=== PATIENT | female | born 1975 | race American Indian/Alaskan Native ===

== ENCOUNTER 2017-01-28 14:08 | Emergency (ER) | payer MEDICAID ==
[~2017-01-28 14:08] MED LIST: traMADol 50 MG Tab PO ONE
[2017-01-28 14:11] VITALS: BP 148/96
[2017-01-28] MEDS ORDERED: Ketorolac 60 MG/2 ML SDV IM ONE (14:15)
--- NOTE | 2017-01-28 14:50 | EDM.PDOC ---
ED HPI GENERAL MEDICAL PROBLEM - General Chief Complaint: Back Pain or Injury Stated Complaint: lower back pain/spasms Time Seen by Provider: 01/28/17 14:29 Source of Information: Reports: Patient History Limitations: Reports: No Limitations - History of Present Illness INITIAL COMMENTS - FREE TEXT/NARRATIVE: Patient with 2 year history of LBP with multiple images and interventional management diagnosis bulging disc unsure what level in the lumbar spine. This am was doing morning stretches and felt a catch in the low back with limited ROM she indicates she was out of pain medication eg. Hartman and presents to ER for evaluation and medications. She indicates has Xanaflex at home and is taking home medications as indicated. She denies cauda equina S/S. 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), Home Treatments Lower Back Pain Score (Numeric/FACES): 9 - Related Data Allergies Allergy/AdvReac Type Severity Reaction Status Date / Time methocarbamol [From Robaxin] Allergy Edema Verified 01/28/17 14:11 Home Meds: Home Meds Cyclobenzaprine [Flexeril] 10 mg PO BEDTIME PRN 10/25/15 [History] Escitalopram [Lexapro] 20 mg PO DAILY 10/25/15 [History] Naproxen 500 mg PO BID 10/25/15 [History] Pregabalin [Lyrica] 150 mg PO TID 10/25/15 [History] SUMAtriptan [Imitrex] 50 mg PO Q2H PRN 10/25/15 [History] Zolpidem Tartrate [Ambien Cr] 6.25 mg PO BEDTIME PRN 10/25/15 [History] clonazePAM [Clonazepam] 0.25 mg PO BID PRN 10/25/15 [History] tiZANidine [Zanaflex] 4 mg PO BID PRN 10/25/15 [History] ALPRAZolam [Alprazolam] 0.5 mg PO BID PRN 04/12/16 [History] Ferrous Sulfate 650 mg PO DAILY 04/12/16 [History] Hydrocodone/Acetaminophen [Hydrocodone-Acetaminophen 5-325] 1 - 2 tab PO Q4H PRN 04/12/16 [History] buPROPion HCl [Wellbutrin Xl] 300 mg PO DAILY 04/14/16 [History] Lidocaine 5% [Lidoderm 5%] 1 patch TOP Q24H PRN 01/28/17 [History] traZODone 50 mg PO BEDTIME 01/28/17 [History] Past Medical History Cardiovascular History: Reports: Hypertension Genitourinary History: Reports: UTI, Recurrent 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 Musculoskeletal History: Reports: Back Pain, Chronic, Other (See Below) ([facility] [place]) Neurological History: Reports: Migraines Psychiatric History: Reports: Depression Endocrine/Metabolic History: Reports: None, Obesity/BMI 30+ Hematologic History: Reports: None - Past Surgical History GI Surgical History: Reports: Appendectomy Social & Family History - Tobacco Use Smoking Status *Q: Never Smoker Years of Tobacco use: 15 Packs/Tins Daily: 0.1 Used Tobacco, but Quit: Yes Month Tobacco Last Used: 5 MONTHS AGO Second Hand Smoke Exposure: Yes - Recreational Drug Use Recreational Drug Use: No - Living Situation & Occupation Occupation: Unemployed ED ROS GENERAL - Review of Systems Review Of Systems: See Below Constitutional: Reports: Weakness HEENT: Reports: No Symptoms Respiratory: Reports: No Symptoms Cardiovascular: Reports: No Symptoms Endocrine: Reports: No Symptoms GI/Abdominal: Reports: No Symptoms : Reports: No Symptoms Musculoskeletal: Reports: Back Pain, Muscle Pain Skin: Reports: No Symptoms Neurological: Reports: No Symptoms, Difficulty Walking, Gait Disturbance. Denies: Paresthesia, Tingling, Weakness Psychiatric: Reports: Depression Hematologic/Lymphatic: Reports: No Symptoms Immunologic: Reports: No Symptoms ED EXAM,LOWER BACK PAIN/INJURY - Physical Exam Exam: See Below Exam Limited By: Other (Exacerbation with movement pain) General Appearance: Alert, WD/WN, Mild Distress, Obese Ears: Normal External Exam Nose: Normal Inspection Throat/Mouth: Normal Inspection, Normal Teeth Head: Atraumatic, Normocephalic Neck: Normal Inspection, Full Range of Motion Respiratory/Chest: No Respiratory Distress, Lungs Clear Cardiovascular: Normal Peripheral Pulses, Regular Rate, Rhythm, No Edema, No JVD GI/Abdominal: Soft (Female) Exam: Deferred Rectal (Female) Exam: Deferred Back Exam: Normal Inspection, Decreased Range of Motion, Muscle Spasm, Paraspinal Tenderness, Vertebral Tenderness, Other (+ Bilateral SLE- Neurovascualr intact + [place]) Neurological: Alert, CN II-XII Intact, Normal Reflexes DTR - Lower Extremities: 3+: Knee (R), Knee (L), Ankle (R), Ankle (L) Psychiatric: Anxious, Tearful Skin Exam: Warm, Dry, Intact, Normal Color, No Rash Lymphatic: No Adenopathy Course - Vital Signs Last Recorded V/S: Last Vital Signs Temp 36.3 C 01/28/17 14:09 Pulse 74 01/28/17 14:09 Resp 20 01/28/17 14:09 BP 148/96 H 01/28/17 14:09 Pulse Ox 99 01/28/17 14:09 - Orders/Labs/Meds Meds: Medications Discontinued Medications Generic Name Dose Route Start Last Admin Trade Name Freq PRN Reason Stop Dose Admin Ketorolac Tromethamine 60 mg 01/28/17 14:15 01/28/17 14:21 Toradol IM 01/28/17 14:16 60 mg ONETIME ONE Administration Orphenadrine Citrate 60 mg 01/28/17 14:16 01/28/17 14:22 Norflex IM 01/28/17 14:17 60 mg ONETIME ONE Administration Departure - Departure Time of Disposition: 14:56 Disposition: Home, Self-Care 01 Condition: good Clinical Impression: Back pain - Discharge Information Instructions: Muscle Strain, [id number], Back Pain, Adult, [id number], Chronic Back Pain, Pain Medicine Instructions, [id number] Forms: ED Department Discharge Additional Instructions: Discussed with patient home therapy for chronic pain in low back. Will give 8 Tramadol 50 mg to take 1 every 8-12 hours prn severe pain. Patient will utilize ice and stretching until seen by PT this week. Home Muscle relaxants Xanaflex to continue. Weight loss management and low impact exercise advised and take home sheet reviewed. MLP Sign Off - Signature Requirements MLP Sign Off: No - Problem List & Annotations (1) Back pain SNOMED Code(s): 292687365 Code(s): M54.9 - DORSALGIA, UNSPECIFIED Status: Acute Current Visit: Yes Qualifiers: Back pain location: low back pain Chronicity: chronic Back pain laterality: bilateral Sciatica presence: unspecified whether sciatica present Qualified Code(s): M54.5 - Low back pain; G89.29 - Other chronic pain - Problem List Review Problem List Initiated/Reviewed/Updated: Yes - Assessment/Plan Assessment:: Chronic Low Back pain Obesity Plan: Discussed with patient home therapy for chronic pain in low back. Will give 8 Tramadol 50 mg to take 1 every 8-12 hours prn severe pain. Patient will utilize ice and stretching until seen by PT this week. Home Muscle relaxants Xanaflex to continue. Weight loss management and low impact exercise advised and take home sheet reviewed.
[2017-01-28] MEDS ORDERED: Take Home: traMADol 50 MG, 4 Tab Pack PO ONE (14:57)
== END 2017-01-28 15:13 | disposition home or self-care (01) ==
LOC: CC.ED 14:08
DX: M54.5 Low back pain (principal); G89.29 Other chronic pain; M62.830 Muscle spasm of back; E66.9 Obesity, unspecified; I10 Essential (primary) hypertension; F32.9 Major depressive disorder, single episode, unspecified; Z68.38 Body mass index [BMI] 38.0-38.9, adult; Z88.8 Allergy status to other drugs, medicaments and biological substances; Z79.899 Other long term (current) drug therapy; Z87.440 Personal history of urinary (tract) infections; Z90.49 Acquired absence of other specified parts of digestive tract
CPT/HCPCS: 96372; 99282; A9270; J1885; J2360

== ENCOUNTER 2017-02-13 17:03 | Emergency (ER) | payer MEDICAID ==
[2017-02-13 17:08] VITALS: BP 151/84
--- NOTE | 2017-02-13 17:29 | EDM.PDOC ---
ED HPI GENERAL MEDICAL PROBLEM - General Chief Complaint: Eye Problems Stated Complaint: right eye problem Time Seen by Provider: 02/13/17 17:23 Source of Information: Reports: Patient History Limitations: Reports: No Limitations - History of Present Illness INITIAL COMMENTS - FREE TEXT/NARRATIVE: Red irritated swollen eye draining. Onset: Gradual Duration: Day(s): Improves with: Reports: None Worsens with: Reports: None Right Eye Pain Score (Numeric/FACES): 8 - Related Data Allergies Allergy/AdvReac Type Severity Reaction Status Date / Time methocarbamol [From Robaxin] Allergy Edema Verified 02/13/17 17:08 Home Meds: Home Meds Cyclobenzaprine [Flexeril] 10 mg PO BEDTIME PRN 10/25/15 [History] Escitalopram [Lexapro] 20 mg PO DAILY 10/25/15 [History] Naproxen 500 mg PO BID 10/25/15 [History] Pregabalin [Lyrica] 150 mg PO TID 10/25/15 [History] SUMAtriptan [Imitrex] 50 mg PO Q2H PRN 10/25/15 [History] Zolpidem Tartrate [Ambien Cr] 6.25 mg PO BEDTIME PRN 10/25/15 [History] clonazePAM [Clonazepam] 0.25 mg PO BID PRN 10/25/15 [History] tiZANidine [Zanaflex] 4 mg PO BID PRN 10/25/15 [History] ALPRAZolam [Alprazolam] 0.5 mg PO BID PRN 04/12/16 [History] Ferrous Sulfate 650 mg PO DAILY 04/12/16 [History] Hydrocodone/Acetaminophen [Hydrocodone-Acetaminophen 5-325] 1 - 2 tab PO Q4H PRN 04/12/16 [History] buPROPion HCl [Wellbutrin Xl] 300 mg PO DAILY 04/14/16 [History] Lidocaine 5% [Lidoderm 5%] 1 patch TOP Q24H PRN 01/28/17 [History] traZODone 50 mg PO BEDTIME 01/28/17 [History] Past Medical History Cardiovascular History: Reports: Hypertension Genitourinary History: Reports: UTI, 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 Musculoskeletal History: Reports: Back Pain, Chronic, Other (See Below) Neurological History: Reports: Migraines Psychiatric History: Reports: Depression Endocrine/Metabolic History: Reports: None, Obesity/BMI 30+ Hematologic History: Reports: None - Past Surgical History GI Surgical History: Reports: Appendectomy Social & Family History - Tobacco Use Smoking Status *Q: Never Smoker Years of Tobacco use: 15 Packs/Tins Daily: 0.1 Used Tobacco, but Quit: Yes Month Tobacco Last Used: 5 MONTHS AGO Second Hand Smoke Exposure: Yes - Recreational Drug Use Recreational Drug Use: No - Living Situation & Occupation Occupation: Unemployed ED ROS GENERAL - Review of Systems Review Of Systems: See Below Constitutional: Reports: No Symptoms HEENT: Reports: Eye Discharge, Eye Pain Respiratory: Reports: No Symptoms Cardiovascular: Reports: No Symptoms GI/Abdominal: Reports: No Symptoms Musculoskeletal: Reports: No Symptoms Skin: Reports: No Symptoms Neurological: Reports: No Symptoms Psychiatric: Reports: No Symptoms ED EXAM GENERAL W FULL EYE - Physical Exam Exam: See Below Exam Limited By: No Limitations General Appearance: Alert, WD/WN Eye Exam: Right Eye: Conjunctival Injection Conjunctiva & Sclera: Right: Conjunctival Edema, Discharge Cornea Exam: Right: Normal Appearance Ears: Normal External Exam Nose: Normal Inspection Throat/Mouth: Normal Inspection Head: Atraumatic Respiratory/Chest: No Respiratory Distress Cardiovascular: Normal Peripheral Pulses GI/Abdominal: Normal Bowel Sounds Course - Vital Signs Last Recorded V/S: Last Vital Signs Temp 97.4 F 02/13/17 17:04 Pulse 92 02/13/17 17:04 Resp 20 02/13/17 17:04 BP 151/84 H 02/13/17 17:04 Pulse Ox 98 02/13/17 17:04 - Orders/Labs/Meds Orders: Active Orders 24 hr Category Date Time Status Ciprofloxacin [Ciloxan 0.3% Ophth Soln] Med 02/13/17 17:30 Ordered See Dose Instructions EYERT Q4HR Departure - Departure Time of Disposition: 17:28 Disposition: Home, Self-Care 01 Condition: Good Clinical Impression: Conjunctivitis - Discharge Information Instructions: Bacterial Conjunctivitis, [id number] Forms: ED Department Discharge - My Orders Last 24 Hours: My Active Orders 02/13/17 17:30 Ciprofloxacin [Ciloxan 0.3% Ophth Soln] See Dose Instructions EYERT Q4HR - Assessment/Plan Last 24 Hours: My Active Orders 02/13/17 17:30 Ciprofloxacin [Ciloxan 0.3% Ophth Soln] See Dose Instructions EYERT Q4HR
[2017-02-13] MEDS ORDERED: Ciprofloxacin 0.3% Ophth Soln 2.5 ML Bottle EYERT SCH ×2 (17:30→17:45)
== END 2017-02-13 17:35 | disposition home or self-care (01) ==
LOC: CC.ED 17:03
DX: H10.9 Unspecified conjunctivitis (principal); I10 Essential (primary) hypertension; G43.909 Migraine, unspecified, not intractable, without status migrainosus; F32.9 Major depressive disorder, single episode, unspecified; E66.9 Obesity, unspecified; Z98.890 Other specified postprocedural states; Z88.8 Allergy status to other drugs, medicaments and biological substances; Z79.899 Other long term (current) drug therapy
CPT/HCPCS: 99282; A9270

== ENCOUNTER 2019-03-01 12:01 | Emergency (ER) | payer MEDICAID ==
[2019-03-01 12:31] VITALS: BP 117/72; PULSE 74
[2019-03-01] MEDS ORDERED: Ketorolac 30 MG/ML SDV IVPUSH ONE (12:43)
[2019-03-01] MEDS ORDERED: diphenhydrAMINE 50 MG/ML SDV IVPUSH ONE (12:43)
[2019-03-01] MEDS ORDERED: Sodium Chloride 0.9% 1,000 ML IV ONE (12:43)
[2019-03-01] MEDS ORDERED: Metoclopramide 10 MG/2 ML SDV IVPUSH ONE (13:56)
--- NOTE | 2019-03-01 15:29 | EDM.PDOC ---
ED HPI GENERAL MEDICAL PROBLEM - General Chief Complaint: Headache Stated Complaint: MIGRAINE Time Seen by Provider: 03/01/19 12:33 Source of Information: Reports: Patient History Limitations: Reports: No Limitations - History of Present Illness INITIAL COMMENTS - FREE TEXT/NARRATIVE: Lonnie is a 43 yo female who presents to the ED via private vehicle with concerns of a migraine headache. States she started getting the headache this morning and it has gradually gotten worse thru out the day. States she did have some nausea and an episode of emesis. Was able to take her anti-nausea medication and was able to rest. States she did take Toradol tablet and triptan at home as well. Admits she didn't get really any relief. States she is scheduled to see neurology next week for migraines as she has been getting them quite frequently. Does see Clarisa Hull in clinic who has been working it up. States it is intense but still has her typical migraine features. States she does have some light photosensitivity. Headache Pain Score (Numeric/FACES): 9 - Related Data Allergies Allergy/AdvReac Type Severity Reaction Status Date / Time methocarbamol [From Robaxin] Allergy Edema Verified 03/01/19 12:16 Home Meds: Home Meds Naproxen 500 mg PO BID PRN 10/25/15 [History] Pregabalin [Lyrica] 100 mg PO TID 10/25/15 [History] Zolpidem Tartrate [Ambien Cr] 6.25 mg PO BEDTIME PRN 10/25/15 [History] tiZANidine [Zanaflex] 4 mg PO BID PRN 10/25/15 [History] ALPRAZolam [Alprazolam] 0.5 mg PO BID PRN 04/12/16 [History] Lidocaine 5% [Lidoderm 5%] 1 patch TOP Q24H PRN 01/28/17 [History] Cholecalciferol (Vitamin D3) [Vitamin D3] 1,000 units PO BID 03/01/19 [History] DULoxetine [Cymbalta] 60 mg PO BEDTIME 03/01/19 [History] Ketorolac [Toradol] 10 mg PO DAILY PRN 03/01/19 [History] Magnesium 500 mg PO DAILY 03/01/19 [History] Multivitamin [Multivitamins] 1 tab PO DAILY 03/01/19 [History] Phentermine HCl 0.5 tab PO DAILY 03/01/19 [History] Rizatriptan Benzoate [Rizatriptan] 5 mg PO ASDIRECTED PRN 03/01/19 [History] Topiramate 100 mg PO BID 03/01/19 [History] atorvaSTATin [Lipitor] 20 mg PO DAILY 03/01/19 [History] metFORMIN [Glucophage XR] 500 mg PO TID 03/01/19 [History] Past Medical History Cardiovascular History: Reports: Hypertension Genitourinary History: Reports: UTI, 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 Denies: Vision Change Respiratory: Reports: No Symptoms Cardiovascular: Reports: No Symptoms GI/Abdominal: Reports: No Symptoms Musculoskeletal: Denies: Neck Pain, Muscle Stiffness Neurological: Reports: Headache. Denies: Confusion, Dizziness, Seizure, Syncope , Difficulty Walking, Gait Disturbance Psychiatric: Reports: No Symptoms - Physical Exam Exam: See Below Exam Limited By: No Limitations General Appearance: Alert, No Apparent Distress Eye Exam: Bilateral Eye: EOMI, Normal Inspection, PERRL Ears: Normal External Exam, Normal Canal, Hearing Grossly Normal, Normal TMs Nose: Normal Inspection, Normal Mucosa, No Blood Throat/Mouth: Normal Inspection, Normal Lips, Normal Teeth, Normal Oropharynx, Normal Voice, No Airway Compromise Head Exam: Atraumatic, Normocephalic Neck: Normal Inspection, Supple Respiratory/Chest: No Respiratory Distress, Lungs Clear, Normal Breath Sounds, No Accessory Muscle Use Cardiovascular: Regular Rate, Rhythm, No Murmur GI/Abdominal: Normal Bowel Sounds, Soft, Non-Tender, No Organomegaly, No Distention Neuro Exam (Abbreviated): Alert, Oriented, CN II-XII Intact, Normal Cognition, No Motor/Sensory Deficits Extremities: Normal Inspection Psychiatric: Normal Affect, Normal Mood Skin Exam: Warm, Dry, Intact, Normal Color, No Rash Course - Vital Signs Last Recorded V/S: Last Vital Signs Temp 98.2 F 03/01/19 12:30 Pulse 74 03/01/19 12:30 Resp 20 03/01/19 12:30 BP 117/72 03/01/19 12:30 Pulse Ox 98 03/01/19 12:30 - Orders/Labs/Meds Orders: Active Orders 24 hr Category Date Time Status COMPREHENSIVE METABOLIC PN,CMP [CHEM] Stat Lab 03/01/19 13:43 Ordered CRP [C-REACTIVE PROTEIN] [CHEM] Stat Lab 03/01/19 13:43 Ordered MAGNESIUM [CHEM] Stat Lab 03/01/19 13:43 Ordered Labs: Laboratory Tests 03/01/19 03/01/19 Range/Units 13:43 14:00 WBC 6.3 (5.0-10.0) 10^3/uL RBC 4.28 (4.00-5.50) 10^6/uL Hgb 12.8 (12.0-16.0) g/dL Hct 38.7 (37.0-47.0) % MCV 90.4 (82.0-94.0) fL MCH 29.9 (27.0-32.0) pg MCHC 33.1 (33.0-38.0) g/dL RDW Coeff of Aryan 12.7 (11.0-15.0) % Plt Count 495 H (150-400) 10^3/uL Neut % (Auto) 68.3 (35-85) % Lymph % (Auto) 21.5 (10-55) % Creek % (Auto) 7.6 (0-16) % Eos % (Auto) 2.1 (0-5) % Baso % (Auto) 0.5 (0-3) % Neut # (Auto) 4.33 (1.80-7.00) 10^3/uL Lymph # (Auto) 1.36 (1.00-4.80) 10^3/uL [place] # (Auto) 0.48 (0.00-0.80) 10^3/uL Eos # (Auto) 0.13 (0.00-0.45) 10^3/uL Baso # (Auto) 0.03 10^3/uL Carbon Dioxide 23 (21-32) mmol/L BUN 20 H (7-18) mg/dL Creatinine 0.8 (0.6-1.0) mg/dL Est Cr Clr Drug Dosing 72.45 mL/min Estimated GFR (MDRD) > 60 (>=60) mL/min Glucose 88 (75-99) mg/dL Calcium 8.6 (8.4-10.1) mg/dL Magnesium 1.8 (1.8-2.4) mg/dL Total Bilirubin 0.3 (0.0-1.0) mg/dL AST 27 (15-37) U/L ALT 40 (12-78) U/L Alkaline Phosphatase 124 H (46-116) U/L C-Reactive Protein 0.1 L (0.2-0.8) mg/dL Total Protein 6.9 (6.4-8.2) g/dL Albumin 3.5 (3.4-5.0) g/dL Meds: Medications Discontinued Medications Generic Name Dose Route Start Last Admin Trade Name Freq PRN Reason Stop Dose Admin Diphenhydramine HCl 25 mg 03/01/19 12:43 03/01/19 12:53 Benadryl IVPUSH 03/01/19 12:44 25 mg ONETIME ONE Administration Sodium Chloride 1,000 mls @ 999 mls/hr 03/01/19 12:43 03/01/19 12:49 Normal Saline IV 03/01/19 13:43 999 mls/hr .BOLUS ONE Administration Ketorolac Tromethamine 15 mg 03/01/19 12:43 03/01/19 12:50 Toradol IVPUSH 03/01/19 12:44 15 mg ONETIME ONE Administration Metoclopramide HCl 10 mg 03/01/19 13:56 03/01/19 14:16 Reglan IVPUSH 03/01/19 13:57 10 mg ONETIME ONE Administration Departure - Departure Time of Disposition: 15:27 Disposition: Home, Self-Care 01 Clinical Impression: Migraine - Discharge Information Instructions: Migraine Headache, [id number] Additional Instructions: 1) Continue with current home medications as needed 2) Encourage increasing water intake 3) Keep current appointment with neurology 4) Advise not driving and having someone come give you a ride after IV medications today 5) Return to ED if symptoms worsen or any concerns. - Problem List & Annotations (1) Migraine SNOMED Code(s): 99025644 Code(s): G43.909 - MIGRAINE, UNSP, NOT INTRACTABLE, WITHOUT STATUS MIGRAINOSUS Status: Acute - My Orders Last 24 Hours: My Active Orders 03/01/19 13:43 COMPREHENSIVE METABOLIC PN,CMP [CHEM] Stat CRP [C-REACTIVE PROTEIN] [CHEM] Stat MAGNESIUM [CHEM] Stat - Assessment/Plan Last 24 Hours: My Active Orders 03/01/19 13:43 COMPREHENSIVE METABOLIC PN,CMP [CHEM] Stat CRP [C-REACTIVE PROTEIN] [CHEM] Stat MAGNESIUM [CHEM] Stat Plan: Laboratory work was unremarkable today. Patient taken to floor for IV fluids, toradol and diphenhydramine. Patient admitted headache was still present and 10mg of Reglan given IV, which she felt did help and headache had improved. Patient appeared to be tired and I advised Inila we will discharge her but advise getting a ride home at this time. See additional instructions.
[2019-03-02 10:53] LABS: CHLORIDE,CL 109 mEq/L (98-106); SODIUM,NA 141 mEq/L (136-145)
== END 2019-03-01 17:10 | disposition home or self-care (01) ==
LOC: CC.ED 12:01
DX: G43.909 Migraine, unspecified, not intractable, without status migrainosus (principal); I10 Essential (primary) hypertension; F32.9 Major depressive disorder, single episode, unspecified; Z79.899 Other long term (current) drug therapy; Z88.8 Allergy status to other drugs, medicaments and biological substances
CPT/HCPCS: 36415; 80053; 83735; 85025; 86140; 96361; 96374; 96375; 99283; J1200; J1885; J2765; J7030

== ENCOUNTER 2022-04-06 19:19 | Emergency (ER) | payer MEDICAID ==
[2022-04-06] MEDS ORDERED: Sodium Chloride 0.9% 1,000 ML IV ONE ×3 (19:34→22:16)
[2022-04-06] MEDS ORDERED: Ondansetron 4 MG/2 ML SDV IVPUSH STA ×2 (19:35→20:34)
[2022-04-06] MEDS ORDERED: HYDROmorphone 1 MG/ML Syringe IVPUSH ONE ×2 (19:36→20:35)
[2022-04-06] MEDS ORDERED: cefTRIAXone 1 GM Vial IVPUSH STA (21:21)
[2022-04-06 23:52] VITALS: BP 77/47; PULSE 88
== END 2022-04-06 23:15 ==
LOC: SUPCPDRO 19:19 → CC.ED 19:19
DX: N13.2 Hydronephrosis with renal and ureteral calculous obstruction (principal); N17.9 Acute kidney failure, unspecified; I95.9 Hypotension, unspecified; R50.9 Fever, unspecified; I10 Essential (primary) hypertension; E66.9 Obesity, unspecified; Z68.38 Body mass index [BMI] 38.0-38.9, adult; Z88.8 Allergy status to other drugs, medicaments and biological substances; Z79.84 Long term (current) use of oral hypoglycemic drugs; Z79.899 Other long term (current) drug therapy
CPT/HCPCS: 36415; 71046; 74176; 80053; 81001; 83605; 83690; 85025; 86140; 87040; 87077; 87086; 87088; 87186; 96361; 96374; 96375; 96376; 99284; 99285-25; J0696; J1170; J2405; J7030; U0002

== ENCOUNTER 2022-04-22 15:08 | Emergency (ER) | payer MEDICAID ==
[2022-04-22 15:17] VITALS: BP 131/92; PULSE 68
[2022-04-22 15:47] LABS: MDMA (ECSTASY), URINE NEGATIVE (NEGATIVE); METHADONE,URINE NEGATIVE (NEGATIVE); METHAMPHETAMINES,URINE NEGATIVE (NEGATIVE); OPIATES,URINE NEGATIVE (NEGATIVE)
[2022-04-22 15:48] LABS: AMPHETAMINES,URINE NEGATIVE (NEGATIVE); BARBITURATES,URINE NEGATIVE (NEGATIVE); BENZODIAZEPINE,URINE NEGATIVE (NEGATIVE); OXYCODONE,URINE NEGATIVE (NEGATIVE); PHENCYCLIDINE,URINE NEGATIVE (NEGATIVE); TCA,URINE NEGATIVE (NEGATIVE)
[2022-04-22] MEDS: Sodium Chloride 0.9% 1,000 ML IV ONE (19:04)
== END 2022-04-22 19:52 | disposition home or self-care (01) ==
LOC: CC.ED 15:08
DX: N20.1 Calculus of ureter (principal); D69.3 Immune thrombocytopenic purpura; E86.0 Dehydration; E78.00 Pure hypercholesterolemia, unspecified; E66.9 Obesity, unspecified; Z68.30 Body mass index [BMI] 30.0-30.9, adult; Z88.8 Allergy status to other drugs, medicaments and biological substances; Z79.899 Other long term (current) drug therapy; Z12.31 Encounter for screening mammogram for malignant neoplasm of breast
CPT/HCPCS: 36415; 74176; 77063; 77067; 80053; 80305-QW; 81001; 81025; 83735; 85025; 99284; J7030

== ENCOUNTER 2023-04-24 07:00 | Emergency (ER) | payer MEDICAID ==
[2023-04-24 07:29] VITALS: BP 136/102; PULSE 80
[2023-04-24] MEDS ORDERED: Iopamidol 755 Mg/ML 100 ML Bottle IVPUSH ONE (07:30)
[2023-04-24] MEDS ORDERED: Acetaminophen 500 MG Tab PO ONE (07:41)
[2023-04-24 08:54] LABS: BASOPHILS ABSOLUTE AUTO 0.06 10^3/uL (0.00-0.50); BASOPHILS PERCENT AUTO 0.7 % (0-1); EOSINOPHILS ABSOLUTE AUTO 0.38 10^3/uL (0.00-1.50); EOSINOPHILS PERCENT AUTO 4.2 % (0-6); HEMOGLOBIN 12.8 g/dL (12.0-16.0); IMMATURE GRAN ABSOLUTE AUTO 0.05 10^3/uL (0.00-0.49); IMMATURE GRAN PERCENT AUTO 0.6 % (0.0-4.9); LYMPHOCYTES ABSOLUTE AUTO 2.62 10^3/uL (0.60-5.00); MEAN CORPUSCULAR HEMOGLOBIN 29.2 pg (27.0-32.0); MEAN CORPUSCULAR VOLUME 91.3 fL (83.0-97.0); MONOCYTES ABSOLUTE AUTO 0.54 10^3/uL (0.00-1.50); NEUTROPHILS PERCENT AUTO 59.5 % (41-71); PLATELET COUNT,PLT 389 10^3/uL (150-400); RED BLOOD CELL COUNT 4.38 x10^6/uL (4.00-5.50); WHITE BLOOD CELL COUNT,WBC 9.1 10^3/uL (4.0-11.0)
[2023-04-24 09:10] LABS: APPEARANCE,URINE CLEAR (CLEAR); BILIRUBIN,URINE NEGATIVE (NEGATIVE); COLOR,URINE YELLOW (YELLOW); GLUCOSE,URINE NEGATIVE (NEGATIVE); KETONES,URINE NEGATIVE (NEGATIVE); LEUKOCYTE ESTERASE,URINE NEGATIVE (NEGATIVE); NITRITE,URINE NEGATIVE (NEGATIVE); OCCULT BLOOD,URINE NEGATIVE (NEGATIVE); PROTEIN,URINE NEGATIVE (NEGATIVE); UROBILINOGEN,URINE 0.2 EU/dL (0.2-1.0)
[2023-04-24 09:14] LABS: ALANINE AMINOTRANSFERASE,ALT 25 U/L (12-78); ALBUMIN 3.3 g/dL (3.4-5.0); ALKALINE PHOSPHATASE 180 U/L (46-116); ASPARTATE AMNIOTRANSFERASE,AST 22 U/L (15-37); BILIRUBIN TOTAL 0.3 mg/dL (0.0-1.0); BLOOD UREA NITROGEN,BUN 16 mg/dL (7-18); CALCIUM 9.8 mg/dL (8.4-10.1); CARBON DIOXIDE,CO2 29 mmol/L (21-32); CHLORIDE,CL 101 mEq/L (98-106); CREATINE KINASE,CK 72 U/L (21-215); CREATININE 0.8 mg/dL (0.6-1.0); GLUCOSE RANDOM 112 mg/dL (75-99); MAGNESIUM 1.9 mg/dL (1.8-2.4); POTASSIUM,K 5.9 mEq/L (3.5-5.0); PROTEIN TOTAL,TP 7.7 g/dL (6.4-8.2); SODIUM,NA 138 mEq/L (136-145)
[2023-04-24 09:17] LABS: BACTERIA,URINE NOT SEEN /HPF (NOT SEEN); EPITHELIAL CELLS,URINE NOT SEEN /HPF (NOT SEEN); MUCUS,URINE NOT SEEN /HPF (NOT SEEN); RBC,URINE NOT SEEN /HPF (0-5); WBC,URINE NOT SEEN /HPF (0-5)
[2023-04-24 09:18] LABS: ESTIMATED GFR 92 mL/min (>=60)
[2023-04-24 09:18] LABS: AMPHETAMINES,URINE NEGATIVE (NEGATIVE); BARBITURATES,URINE NEGATIVE (NEGATIVE); BENZODIAZEPINE,URINE POSITIVE (NEGATIVE); MDMA (ECSTASY), URINE NEGATIVE (NEGATIVE); METHADONE,URINE NEGATIVE (NEGATIVE); METHAMPHETAMINES,URINE NEGATIVE (NEGATIVE); OPIATES,URINE NEGATIVE (NEGATIVE); OXYCODONE,URINE NEGATIVE (NEGATIVE); PHENCYCLIDINE,URINE NEGATIVE (NEGATIVE); TCA,URINE NEGATIVE (NEGATIVE)
[2023-04-24 09:20] LABS: ETHANOL BLOOD MEDICAL < 3 mg/dL (0-3)
[2023-04-24] MEDS ORDERED: Ketorolac 30 MG/ML SDV IVPUSH ONE (09:28)
[2023-04-24] MEDS ORDERED: Morphine 2 MG/ML SYRINGE IVPUSH ONE ×2 (09:29→11:37)
[2023-04-24] MEDS ORDERED: Sodium Chloride 0.9% 1,000 ML IV ONE (09:32)
[2023-04-24] MEDS ORDERED: Aspirin 81 MG Tab.Chew PO ONE (09:35)
[2023-04-24] MEDS ORDERED: Nitroglycerin 2% Oint 1 GM UD Packet TOP ONE (09:57)
[2023-04-24] MEDS ORDERED: Heparin Sodium 5,000 Units/ML Vial IVPUSH ONE (10:15)
[2023-04-24] MEDS ORDERED: Heparin Sodium/0.45% NaCl 500 ML IV SCH (10:15)
[2023-04-24] MEDS ORDERED: Nitroglycerin/D5W 25 MG/250 ML BOTTLE IV SCH (11:45)
[2023-04-24] MEDS ORDERED: Ondansetron 4 MG/2 ML SDV IVPUSH ONE (12:51)
[2023-04-24] MEDS: LORazepam 2 MG/ML SDV IVPUSH ONE ×2 (16:00→16:05)
== END 2023-04-24 13:31 ==
LOC: CC.ED 07:00
DX: I21.4 Non-ST elevation (NSTEMI) myocardial infarction (principal); E87.5 Hyperkalemia; M79.81 Nontraumatic hematoma of soft tissue; E78.00 Pure hypercholesterolemia, unspecified; E66.9 Obesity, unspecified; Z68.36 Body mass index [BMI] 36.0-36.9, adult; Z79.84 Long term (current) use of oral hypoglycemic drugs; Z79.899 Other long term (current) drug therapy; Z88.8 Allergy status to other drugs, medicaments and biological substances
CPT/HCPCS: 36415; 70450; 71260; 72125; 74177; 80053; 80305-QW; 80307; 81001; 81025; 82550; 83735; 84484; 85025; 85730; 93005; 93010; 96361; 96365; 96366; 96368; 96375; 96376; 99291; 99291-25; A9270-GY; G0390; J1644; J2060; J2270; J2405; J3490; J7030; Q9967

== ENCOUNTER 2023-05-10 12:40 | Inpatient (IN) | payer MEDICAID ==
[2023-05-10] MEDS ORDERED: Ondansetron 4 MG Tab.DIS PO PRN (13:51)
[2023-05-10] MEDS ORDERED: Polyethylene Glycol 3350 Powder 17 GM Packet PO PRN (13:51)
[2023-05-10] MEDS ORDERED: Docusate Sodium 100 MG Cap PO PRN (13:51)
[2023-05-10] MEDS ORDERED: Ondansetron 4 MG/2 ML SDV IV PRN (13:51)
[2023-05-10] MEDS ORDERED: RIZATRIPTAN BENZOATE 5 MG PO PRN (16:36)
[2023-05-10] MEDS ORDERED: Hydrocortisone 20 MG Tab PO SCH (17:00)
[2023-05-10] MEDS: oxyCODONE 5 MG Tab PO PRN (17:18)
[2023-05-10] MEDS ORDERED: SUMAtriptan 50 MG Tab PO PRN (18:00)
[2023-05-10] MEDS: Pregabalin 100 MG Cap PO SCH (19:21)
[2023-05-10] MEDS: Cholecalciferol (Vitamin D3) 25 MCG Tab PO SCH (19:21)
[2023-05-10] MEDS ORDERED: [UNRECOGNIZED DRUG - OTHER] PO SCH (20:00)
[2023-05-10] MEDS: ALPRAZolam 0.25 MG Tab PO PRN (21:28)
[2023-05-10] MEDS: Zolpidem 5 MG Tab PO PRN (21:28)
[2023-05-11] MEDS: Pregabalin 100 MG Cap PO SCH ×3 (07:58→19:09)
[2023-05-11] MEDS: atorvaSTATin 20 MG Tab PO SCH (07:59)
[2023-05-11] MEDS: Multivitamin Tab PO SCH (07:59)
[2023-05-11] MEDS: PARoxetine 20 MG Tab PO SCH (07:59)
[2023-05-11] MEDS: Hydrocortisone 20 MG Tab PO SCH ×2 (07:59→13:20)
[2023-05-11] MEDS: Cholecalciferol (Vitamin D3) 25 MCG Tab PO SCH ×2 (08:01→19:09)
[2023-05-11] MEDS: Propranolol 60 MG Cap.ER PO SCH (08:19)
[2023-05-11] MEDS: oxyCODONE 5 MG Tab PO PRN ×2 (08:19→17:51)
[2023-05-11] MEDS: ALPRAZolam 0.25 MG Tab PO PRN ×2 (11:57→20:35)
[2023-05-11] MEDS: Acetaminophen 325 MG Tab PO PRN (11:57)
[2023-05-11 13:38] LABS: APPEARANCE,URINE CLEAR (CLEAR); BILIRUBIN,URINE NEGATIVE (NEGATIVE); COLOR,URINE YELLOW (YELLOW); GLUCOSE,URINE NEGATIVE (NEGATIVE); KETONES,URINE NEGATIVE (NEGATIVE); LEUKOCYTE ESTERASE,URINE NEGATIVE (NEGATIVE); NITRITE,URINE NEGATIVE (NEGATIVE); OCCULT BLOOD,URINE NEGATIVE (NEGATIVE); PROTEIN,URINE NEGATIVE (NEGATIVE); UROBILINOGEN,URINE 0.2 EU/dL (0.2-1.0)
[2023-05-11] MEDS: Zolpidem 5 MG Tab PO PRN (20:35)
[2023-05-12] MEDS: Acetaminophen 325 MG Tab PO PRN ×2 (00:35→13:49)
[2023-05-12] MEDS: Hydrocortisone 20 MG Tab PO SCH ×2 (07:58→13:49)
[2023-05-12] MEDS: PARoxetine 20 MG Tab PO SCH (07:59)
[2023-05-12] MEDS: Propranolol 60 MG Cap.ER PO SCH (07:59)
[2023-05-12] MEDS: Multivitamin Tab PO SCH (07:59)
[2023-05-12] MEDS: Pregabalin 100 MG Cap PO SCH ×3 (07:59→20:16)
[2023-05-12] MEDS: Cholecalciferol (Vitamin D3) 25 MCG Tab PO SCH ×2 (08:00→20:16)
[2023-05-12] MEDS: atorvaSTATin 20 MG Tab PO SCH (08:00)
[2023-05-12] MEDS: oxyCODONE 5 MG Tab PO PRN ×2 (08:05→18:00)
[2023-05-12] MEDS: Lidocaine 5% 700 MG Patch TOP PRN (09:36)
[2023-05-12] MEDS ORDERED: RIZATRIPTAN BENZOATE 10 MG PO ONE (10:01)
[2023-05-12] MEDS: ALPRAZolam 0.25 MG Tab PO PRN ×2 (12:18→20:15)
[2023-05-12] MEDS: Ketorolac 60 MG/2 ML SDV IM PRN (22:51)
[2023-05-12] MEDS: Zolpidem 5 MG Tab PO PRN (22:53)
[2023-05-13] MEDS: Hydrocortisone 20 MG Tab PO SCH ×2 (08:34→15:22)
[2023-05-13] MEDS: Propranolol 60 MG Cap.ER PO SCH (08:34)
[2023-05-13] MEDS: Pregabalin 100 MG Cap PO SCH ×3 (08:34→21:59)
[2023-05-13] MEDS: PARoxetine 20 MG Tab PO SCH (08:35)
[2023-05-13] MEDS: Multivitamin Tab PO SCH (08:35)
[2023-05-13] MEDS: atorvaSTATin 20 MG Tab PO SCH (08:36)
[2023-05-13] MEDS: Cholecalciferol (Vitamin D3) 25 MCG Tab PO SCH ×2 (08:36→21:59)
[2023-05-13] MEDS: oxyCODONE 5 MG Tab PO PRN ×3 (10:31→22:53)
[2023-05-13] MEDS: Lidocaine 5% 700 MG Patch TOP PRN (16:21)
[2023-05-13] MEDS: ALPRAZolam 0.25 MG Tab PO PRN (16:21)
[2023-05-13] MEDS: Zolpidem 5 MG Tab PO PRN (21:59)
[2023-05-14] MEDS: ALPRAZolam 0.25 MG Tab PO PRN ×3 (00:36→20:13)
[2023-05-14] MEDS: PARoxetine 20 MG Tab PO SCH (08:44)
[2023-05-14] MEDS: Propranolol 60 MG Cap.ER PO SCH (08:44)
[2023-05-14] MEDS: Multivitamin Tab PO SCH (08:44)
[2023-05-14] MEDS: Hydrocortisone 20 MG Tab PO SCH ×2 (08:44→15:44)
[2023-05-14] MEDS: atorvaSTATin 20 MG Tab PO SCH (08:45)
[2023-05-14] MEDS: Pregabalin 100 MG Cap PO SCH ×3 (08:45→20:12)
[2023-05-14] MEDS: Cholecalciferol (Vitamin D3) 25 MCG Tab PO SCH ×2 (08:45→20:12)
[2023-05-14] MEDS: oxyCODONE 5 MG Tab PO PRN ×2 (08:45→17:25)
[2023-05-14] MEDS: Lidocaine 5% 700 MG Patch TOP PRN (08:58)
[2023-05-14] MEDS: Acetaminophen 325 MG Tab PO PRN ×2 (11:23→22:29)
[2023-05-14] MEDS: Zolpidem 5 MG Tab PO PRN (22:29)
[2023-05-14] MEDS: Ketorolac 60 MG/2 ML SDV IM PRN (22:34)
[2023-05-15] MEDS: PARoxetine 20 MG Tab PO SCH (07:31)
[2023-05-15] MEDS: Hydrocortisone 20 MG Tab PO SCH ×2 (07:32→13:59)
[2023-05-15] MEDS: Propranolol 60 MG Cap.ER PO SCH (07:32)
[2023-05-15] MEDS: Pregabalin 100 MG Cap PO SCH ×3 (07:33→19:58)
[2023-05-15] MEDS: Cholecalciferol (Vitamin D3) 25 MCG Tab PO SCH ×2 (07:33→19:58)
[2023-05-15] MEDS: atorvaSTATin 20 MG Tab PO SCH (07:33)
[2023-05-15] MEDS: Multivitamin Tab PO SCH (07:33)
[2023-05-15] MEDS: oxyCODONE 5 MG Tab PO PRN ×2 (07:37→15:22)
[2023-05-15] MEDS: Acetaminophen 325 MG Tab PO PRN ×2 (10:47→19:57)
[2023-05-15] MEDS: ALPRAZolam 0.25 MG Tab PO PRN ×2 (10:48→18:14)
[2023-05-15] MEDS: Lidocaine 5% 700 MG Patch TOP PRN (10:48)
[2023-05-15 20:06] VITALS: BP 133/74; PULSE 89
== END 2023-05-15 21:35 | disposition home or self-care (01) | DRG 281 ==
LOC: UNDOADMIN 12:40 → CC.MS 12:40
PROVIDERS: ADMIT Nurse Practitioner Family; ATTEND Nurse Practitioner Family
DX: I21.4 Non-ST elevation (NSTEMI) myocardial infarction (principal); E27.40 Unspecified adrenocortical insufficiency; Z68.41 Body mass index [BMI] 40.0-44.9, adult; M54.50 Low back pain, unspecified; G89.29 Other chronic pain; E66.9 Obesity, unspecified; F32.A Depression, unspecified; F41.9 Anxiety disorder, unspecified; G43.909 Migraine, unspecified, not intractable, without status migrainosus; E78.00 Pure hypercholesterolemia, unspecified; Z88.8 Allergy status to other drugs, medicaments and biological substances; Z79.84 Long term (current) use of oral hypoglycemic drugs; Z79.899 Other long term (current) drug therapy; Z87.440 Personal history of urinary (tract) infections; Z90.710 Acquired absence of both cervix and uterus; Z90.89 Acquired absence of other organs; M25.569 Pain in unspecified knee; M25.519 Pain in unspecified shoulder; W01.0XXA Fall on same level from slipping, tripping and stumbling without subsequent striking against object, initial encounter; Y92.009 Unspecified place in unspecified non-institutional (private) residence as the place of occurrence of the external cause
CPT/HCPCS: 81003; 97110-GP; 97161-GP; A9270-GY; J1885

== ENCOUNTER 2023-06-28 14:32 | Emergency (ER) | payer MEDICAID, OTHER ==
[2023-06-28] MEDS ORDERED: Sodium Chloride 0.9% 1,000 ML IV ONE (14:47)
[2023-06-28 15:09] LABS: BASOPHILS ABSOLUTE AUTO 0.04 10^3/uL (0.00-0.50); BASOPHILS PERCENT AUTO 0.5 % (0-1); EOSINOPHILS PERCENT AUTO 2.3 % (0-6); IMMATURE GRAN ABSOLUTE AUTO 0.01 10^3/uL (0.00-0.49); IMMATURE GRAN PERCENT AUTO 0.1 % (0.0-4.9); LYMPHOCYTES ABSOLUTE AUTO 1.75 10^3/uL (0.60-5.00); LYMPHOCYTES PERCENT AUTO 19.9 % (24-44); MEAN CORPUSCULAR HEMOGLOBIN 28.6 pg (27.0-32.0); MEAN CORPUSCULAR HGB CONC 32.5 g/dL (32.0-36.0); MEAN CORPUSCULAR VOLUME 87.9 fL (83.0-97.0); MONOCYTES ABSOLUTE AUTO 0.42 10^3/uL (0.00-1.50); MONOCYTES PERCENT AUTO 4.8 % (0-10); NEUTROPHILS ABSOLUTE AUTO 6.37 x10^3/uL (1.80-8.00); NEUTROPHILS PERCENT AUTO 72.4 % (41-71); PLATELET COUNT,PLT 460 10^3/uL (150-400); RED BLOOD CELL COUNT 4.55 x10^6/uL (4.00-5.50); WHITE BLOOD CELL COUNT,WBC 8.8 10^3/uL (4.0-11.0)
[2023-06-28 15:20] LABS: ALBUMIN 3.9 g/dL (3.4-5.0); BILIRUBIN TOTAL 0.4 mg/dL (0.0-1.0); C-REACTIVE PROTEIN 1.19 mg/dL (<=0.30); CALCIUM 9.7 mg/dL (8.4-10.1); CREATININE 0.9 mg/dL (0.6-1.0); EST CRCL DRUG DOSING (CG) 64.61 mL/min; POTASSIUM,K 3.8 mEq/L (3.5-5.0)
[2023-06-28] MEDS ORDERED: Hydrocortisone Sodium Succinate 100 MG/2 ML SDV IV STA (15:26)
[2023-06-28 15:41] LABS: TSH ULTRASENSITIVE 0.65 uIU/mL (0.36-5.60)
[2023-06-28 16:47] VITALS: BP 135/75; PULSE 74
== END 2023-06-28 19:04 | disposition home or self-care (01) ==
LOC: CC.ED 14:32
DX: E27.49 Other adrenocortical insufficiency (principal); R11.2 Nausea with vomiting, unspecified; E78.00 Pure hypercholesterolemia, unspecified; E66.9 Obesity, unspecified; Z68.38 Body mass index [BMI] 38.0-38.9, adult; Z88.8 Allergy status to other drugs, medicaments and biological substances; Z88.1 Allergy status to other antibiotic agents; Z79.899 Other long term (current) drug therapy
CPT/HCPCS: 36415; 80053; 84443; 85025; 86140; 96361; 96374; 99284; J1720; J7030

== ENCOUNTER 2023-12-23 11:51 | Emergency (ER) | payer MEDICAID ==
[2023-12-23 12:37] LABS: APPEARANCE,URINE SLIGHTLY CLOUDY (CLEAR); BILIRUBIN,URINE NEGATIVE (NEGATIVE); COLOR,URINE DARK YELLOW (YELLOW); GLUCOSE,URINE 100 mg/dL (NEGATIVE); KETONES,URINE NEGATIVE (NEGATIVE); LEUKOCYTE ESTERASE,URINE NEGATIVE (NEGATIVE); NITRITE,URINE NEGATIVE (NEGATIVE); OCCULT BLOOD,URINE NEGATIVE (NEGATIVE); PROTEIN,URINE NEGATIVE (NEGATIVE)
[2023-12-23 12:43] LABS: AMPHETAMINES,URINE NEGATIVE (NEGATIVE); BARBITURATES,URINE NEGATIVE (NEGATIVE); BENZODIAZEPINE,URINE POSITIVE (NEGATIVE); MDMA (ECSTASY), URINE NEGATIVE (NEGATIVE); METHADONE,URINE NEGATIVE (NEGATIVE); METHAMPHETAMINES,URINE NEGATIVE (NEGATIVE); OPIATES,URINE NEGATIVE (NEGATIVE); OXYCODONE,URINE NEGATIVE (NEGATIVE); PHENCYCLIDINE,URINE NEGATIVE (NEGATIVE); TCA,URINE NEGATIVE (NEGATIVE)
[2023-12-23 13:10] LABS: BASOPHILS ABSOLUTE AUTO 0.03 10^3/uL (0.00-0.50); BASOPHILS PERCENT AUTO 0.2 % (0-1); EOSINOPHILS ABSOLUTE AUTO 0.02 10^3/uL (0.00-1.50); EOSINOPHILS PERCENT AUTO 0.2 % (0-6); HEMATOCRIT 42.6 % (37.0-47.0); IMMATURE GRAN ABSOLUTE AUTO 0.04 10^3/uL (0.00-0.49); IMMATURE GRAN PERCENT AUTO 0.3 % (0.0-4.9); LYMPHOCYTES ABSOLUTE AUTO 1.63 10^3/uL (0.60-5.00); LYMPHOCYTES PERCENT AUTO 12.9 % (24-44); MEAN CORPUSCULAR HEMOGLOBIN 29.9 pg (27.0-32.0); MEAN CORPUSCULAR HGB CONC 32.9 g/dL (32.0-36.0); MONOCYTES ABSOLUTE AUTO 0.41 10^3/uL (0.00-1.50); MONOCYTES PERCENT AUTO 3.3 % (0-10); NEUTROPHILS ABSOLUTE AUTO 10.48 x10^3/uL (1.80-8.00); NEUTROPHILS PERCENT AUTO 83.1 % (41-71); PLATELET COUNT,PLT 657 10^3/uL (150-400); RED BLOOD CELL COUNT 4.68 x10^6/uL (4.00-5.50); WHITE BLOOD CELL COUNT,WBC 12.6 10^3/uL (4.0-11.0)
[2023-12-23 13:24] LABS: ALANINE AMINOTRANSFERASE,ALT 40 U/L (12-78); ALBUMIN 3.6 g/dL (3.4-5.0); ALKALINE PHOSPHATASE 207 U/L (46-116); ASPARTATE AMNIOTRANSFERASE,AST 35 U/L (15-37); BILIRUBIN TOTAL 0.3 mg/dL (0.0-1.0); BLOOD UREA NITROGEN,BUN 20 mg/dL (7-18); CALCIUM 9.4 mg/dL (8.4-10.1); CARBON DIOXIDE,CO2 28 mmol/L (21-32); CHLORIDE,CL 98 mEq/L (98-106); CREATININE 1.6 mg/dL (0.6-1.0); GLUCOSE RANDOM 137 mg/dL (75-99); MAGNESIUM 1.9 mg/dL (1.8-2.4); POTASSIUM,K 4.7 mEq/L (3.5-5.0); SODIUM,NA 135 mEq/L (136-145)
[2023-12-23 13:27] LABS: ESTIMATED GFR 40 mL/min (>=60)
[2023-12-23 13:29] LABS: ETHANOL BLOOD MEDICAL < 3 mg/dL (0-3)
[2023-12-23] MEDS: Sodium Chloride 0.9% 1,000 ML IV ONE (14:14)
[2023-12-23] MEDS: Ketorolac 30 MG/ML SDV IVPUSH ONE (14:19)
[2023-12-23 14:32] VITALS: BP 123/67; PULSE 54
== END 2023-12-23 17:40 | disposition home or self-care (01) ==
LOC: CC.ED 11:51
DX: S40.011A Contusion of right shoulder, initial encounter (principal); S60.212A Contusion of left wrist, initial encounter; R55 Syncope and collapse; Z88.8 Allergy status to other drugs, medicaments and biological substances; Z88.1 Allergy status to other antibiotic agents; W19.XXXA Unspecified fall, initial encounter; Y92.002 Bathroom of unspecified non-institutional (private) residence as the place of occurrence of the external cause
CPT/HCPCS: 36415; 70450; 71101-RT; 72125; 73030-RT; 73100-LT; 80053; 80305-QW; 80307; 81003; 83735; 84484; 85025; 93005; 93010; 96361; 96374; 99284; 99284-25; J1885; J7030

== ENCOUNTER 2024-06-18 00:28 | Emergency (ER) | payer MEDICAID ==
[2024-06-18 00:35] VITALS: BP 131/74; PULSE 95
[2024-06-18 01:18] LABS: BASOPHILS ABSOLUTE AUTO 0.06 10^3/uL (0.00-0.50); BASOPHILS PERCENT AUTO 0.7 % (0-1); EOSINOPHILS ABSOLUTE AUTO 0.16 10^3/uL (0.00-1.50); EOSINOPHILS PERCENT AUTO 1.8 % (0-6); HEMATOCRIT 39.8 % (37.0-47.0); HEMOGLOBIN 12.8 g/dL (12.0-16.0); IMMATURE GRAN ABSOLUTE AUTO 0.02 10^3/uL (0.00-0.49); IMMATURE GRAN PERCENT AUTO 0.2 % (0.0-4.9); LYMPHOCYTES ABSOLUTE AUTO 2.41 10^3/uL (0.60-5.00); LYMPHOCYTES PERCENT AUTO 27.3 % (24-44); MEAN CORPUSCULAR HEMOGLOBIN 29.4 pg (27.0-32.0); MEAN CORPUSCULAR HGB CONC 32.2 g/dL (32.0-36.0); MEAN CORPUSCULAR VOLUME 91.5 fL (83.0-97.0); MONOCYTES ABSOLUTE AUTO 0.69 10^3/uL (0.00-1.50); MONOCYTES PERCENT AUTO 7.8 % (0-10); NEUTROPHILS PERCENT AUTO 62.2 % (41-71); PLATELET COUNT,PLT 609 10^3/uL (150-400); RED BLOOD CELL COUNT 4.35 x10^6/uL (4.00-5.50); WHITE BLOOD CELL COUNT,WBC 8.8 10^3/uL (4.0-11.0)
[2024-06-18 01:19] LABS: APPEARANCE,URINE CLEAR (CLEAR); BILIRUBIN,URINE NEGATIVE (NEGATIVE); COLOR,URINE YELLOW (YELLOW); GLUCOSE,URINE NEGATIVE (NEGATIVE); KETONES,URINE TRACE mg/dL (NEGATIVE); LEUKOCYTE ESTERASE,URINE NEGATIVE (NEGATIVE); NITRITE,URINE NEGATIVE (NEGATIVE); OCCULT BLOOD,URINE NEGATIVE (NEGATIVE); PROTEIN,URINE NEGATIVE (NEGATIVE)
[2024-06-18] MEDS: HYDROmorphone 2 MG Tab PO STA (01:21)
[2024-06-18 01:31] LABS: ALANINE AMINOTRANSFERASE,ALT 46 U/L (12-78); ALBUMIN 3.5 g/dL (3.4-5.0); ALKALINE PHOSPHATASE 112 U/L (46-116); ASPARTATE AMNIOTRANSFERASE,AST 34 U/L (15-37); BILIRUBIN TOTAL 0.3 mg/dL (0.0-1.0); BLOOD UREA NITROGEN,BUN 11 mg/dL (7-18); C-REACTIVE PROTEIN 0.68 mg/dL (<=0.50); CARBON DIOXIDE,CO2 28 mmol/L (21-32); CHLORIDE,CL 104 mEq/L (98-106); CREATININE 1.5 mg/dL (0.6-1.0); ESTIMATED GFR 43 mL/min (>=60); GLUCOSE RANDOM 128 mg/dL (75-99); SODIUM,NA 141 mEq/L (136-145)
[2024-06-18] MEDS: Orphenadrine 60 MG/2 ML Inj IM ONE (01:36)
[2024-06-18] MEDS ORDERED: HYDROmorphone 2 MG Tab PO ONE (01:41)
== END 2024-06-18 01:53 | disposition home or self-care (01) ==
LOC: CC.ED 00:28
DX: M54.9 Dorsalgia, unspecified (principal); E78.00 Pure hypercholesterolemia, unspecified; Z90.49 Acquired absence of other specified parts of digestive tract; Z90.710 Acquired absence of both cervix and uterus; Z79.899 Other long term (current) drug therapy; Z88.9 Allergy status to unspecified drugs, medicaments and biological substances; Z88.1 Allergy status to other antibiotic agents
CPT/HCPCS: 36415; 80053; 81003; 85025; 86140; 96372; 99284; A9270; J2360

== ENCOUNTER 2024-07-08 08:15 | Emergency (ER) | payer MEDICAID ==
[2024-07-08 08:24] VITALS: BP 133/59; PULSE 100
[2024-07-08] MEDS: Ketorolac 30 MG/ML SDV IM ONE (08:36)
[2024-07-08 08:52] LABS: BASOPHILS ABSOLUTE AUTO 0.03 10^3/uL (0.00-0.50); BASOPHILS PERCENT AUTO 0.4 % (0-1); EOSINOPHILS ABSOLUTE AUTO 0.17 10^3/uL (0.00-1.50); EOSINOPHILS PERCENT AUTO 2.1 % (0-6); HEMATOCRIT 42.3 % (37.0-47.0); HEMOGLOBIN 13.7 g/dL (12.0-16.0); IMMATURE GRAN ABSOLUTE AUTO 0.03 10^3/uL (0.00-0.49); IMMATURE GRAN PERCENT AUTO 0.4 % (0.0-4.9); LYMPHOCYTES ABSOLUTE AUTO 1.74 10^3/uL (0.60-5.00); LYMPHOCYTES PERCENT AUTO 21.9 % (24-44); MEAN CORPUSCULAR HEMOGLOBIN 28.8 pg (27.0-32.0); MEAN CORPUSCULAR HGB CONC 32.4 g/dL (32.0-36.0); MEAN CORPUSCULAR VOLUME 89.1 fL (83.0-97.0); MONOCYTES ABSOLUTE AUTO 0.45 10^3/uL (0.00-1.50); MONOCYTES PERCENT AUTO 5.7 % (0-10); NEUTROPHILS ABSOLUTE AUTO 5.52 x10^3/uL (1.80-8.00); NEUTROPHILS PERCENT AUTO 69.5 % (41-71); PLATELET COUNT,PLT 445 10^3/uL (150-400); RED BLOOD CELL COUNT 4.75 x10^6/uL (4.00-5.50); WHITE BLOOD CELL COUNT,WBC 7.9 10^3/uL (4.0-11.0)
[2024-07-08 08:58] LABS: APPEARANCE,URINE SLIGHTLY CLOUDY (CLEAR); BILIRUBIN,URINE NEGATIVE (NEGATIVE); COLOR,URINE YELLOW (YELLOW); GLUCOSE,URINE NEGATIVE (NEGATIVE); KETONES,URINE NEGATIVE (NEGATIVE); LEUKOCYTE ESTERASE,URINE NEGATIVE (NEGATIVE); NITRITE,URINE NEGATIVE (NEGATIVE); OCCULT BLOOD,URINE NEGATIVE (NEGATIVE); PROTEIN,URINE NEGATIVE (NEGATIVE)
[2024-07-08 09:02] LABS: ALBUMIN 3.7 g/dL (3.4-5.0); BILIRUBIN TOTAL 0.6 mg/dL (0.0-1.0); C-REACTIVE PROTEIN 0.84 mg/dL (<=0.50); CALCIUM 9.7 mg/dL (8.4-10.1); CREATININE 1.1 mg/dL (0.6-1.0); POTASSIUM,K 4.2 mEq/L (3.5-5.0); PROTEIN TOTAL,TP 7.4 g/dL (6.4-8.2)
== END 2024-07-08 10:15 | disposition home or self-care (01) ==
LOC: CC.ED 08:15
DX: R11.2 Nausea with vomiting, unspecified (principal); E78.00 Pure hypercholesterolemia, unspecified; E66.9 Obesity, unspecified; Z68.42 Body mass index [BMI] 45.0-49.9, adult; Z90.49 Acquired absence of other specified parts of digestive tract; Z90.710 Acquired absence of both cervix and uterus; Z88.1 Allergy status to other antibiotic agents; Z88.8 Allergy status to other drugs, medicaments and biological substances; Z79.899 Other long term (current) drug therapy
CPT/HCPCS: 36415; 80053; 81003; 83690; 85025; 86140; 96372; 99283; 99284; J1885

== ENCOUNTER 2024-07-29 19:26 | Emergency (ER) | payer MEDICAID ==
[2024-07-29] MEDS: Ondansetron 4 MG/2 ML SDV IVPUSH STA (19:57)
[2024-07-29] MEDS: Sodium Chloride 0.9% 1,000 ML IV ONE (19:57)
[2024-07-29 20:06] LABS: BASOPHILS ABSOLUTE AUTO 0.03 10^3/uL (0.00-0.50); BASOPHILS PERCENT AUTO 0.4 % (0-1); EOSINOPHILS ABSOLUTE AUTO 0.13 10^3/uL (0.00-1.50); EOSINOPHILS PERCENT AUTO 1.9 % (0-6); HEMATOCRIT 40.5 % (37.0-47.0); IMMATURE GRAN ABSOLUTE AUTO 0.03 10^3/uL (0.00-0.49); IMMATURE GRAN PERCENT AUTO 0.4 % (0.0-4.9); LYMPHOCYTES ABSOLUTE AUTO 2.25 10^3/uL (0.60-5.00); LYMPHOCYTES PERCENT AUTO 32.1 % (24-44); MEAN CORPUSCULAR HEMOGLOBIN 28.8 pg (27.0-32.0); MEAN CORPUSCULAR HGB CONC 32.1 g/dL (32.0-36.0); MEAN CORPUSCULAR VOLUME 89.6 fL (83.0-97.0); MONOCYTES ABSOLUTE AUTO 0.64 10^3/uL (0.00-1.50); MONOCYTES PERCENT AUTO 9.1 % (0-10); NEUTROPHILS ABSOLUTE AUTO 3.94 x10^3/uL (1.80-8.00); NEUTROPHILS PERCENT AUTO 56.1 % (41-71); PLATELET COUNT,PLT 471 10^3/uL (150-400); RED BLOOD CELL COUNT 4.52 x10^6/uL (4.00-5.50)
[2024-07-29 20:21] LABS: ALBUMIN 3.5 g/dL (3.4-5.0); BILIRUBIN TOTAL 0.2 mg/dL (0.0-1.0); C-REACTIVE PROTEIN 0.93 mg/dL (<=0.50); CALCIUM 9.7 mg/dL (8.4-10.1); CREATININE 1.2 mg/dL (0.6-1.0); EST CRCL DRUG DOSING (CG) 45.84 mL/min; POTASSIUM,K 3.8 mEq/L (3.5-5.0); PROTEIN TOTAL,TP 7.3 g/dL (6.4-8.2)
[2024-07-29 20:41] VITALS: BP 132/68; PULSE 81
[2024-07-29] MEDS: Hydrocortisone 20 MG Tab PO ONE (21:00)
== END 2024-07-29 21:45 | disposition home or self-care (01) ==
LOC: CC.ED 19:26
DX: K52.9 Noninfective gastroenteritis and colitis, unspecified (principal); E78.00 Pure hypercholesterolemia, unspecified; E66.9 Obesity, unspecified; Z90.49 Acquired absence of other specified parts of digestive tract; Z90.710 Acquired absence of both cervix and uterus; Z88.8 Allergy status to other drugs, medicaments and biological substances; Z79.84 Long term (current) use of oral hypoglycemic drugs; Z79.899 Other long term (current) drug therapy; Z68.41 Body mass index [BMI] 40.0-44.9, adult
CPT/HCPCS: 36415; 80053; 85025; 86140; 87428-QW; 96361; 96374; 99284; 99285-25; A9270-GY; J2405; J7030